=== PATIENT | male | born 1970 | race Caucasian/White ===

== ENCOUNTER 2019-05-27 23:48 | Emergency (ER) | payer MEDICAID ==
[~2019-05-27] VITALS: Ht 182.9 cm; Wt 99.8 kg
[2019-05-27 23:55] VITALS: BP_SYST 149
--- NOTE | 2019-05-28 02:04 | NUR ---
pPlaced in room 2 . Placed on child monitor, blood pressure machine and pulse oximeter. To gown for exam. Side rails up.
--- NOTE | 2019-05-28 02:45 | NUR ---
ER at bedside examining patient.
[2019-05-28 03:05] LABS: BASOPHILS # (AUTO) 0.1 K/uL (0.0-0.2); BASOPHILS % (AUTO) 0.9 % (0.0-2.0); EOSINOPHILS # (AUTO) 0.6 K/uL (0.0-0.4); HEMATOCRIT 44.6 % (36-54); HEMOGLOBIN 15.2 g/dL (14.0-18.0); LYMPHOCYTES # (AUTO) 1.6 K/uL (1.0-5.5); LYMPHOCYTES % (AUTO) 11.5 % (20.5-51.5); MEAN CORPUSCULAR HEMOGLOBIN 32 pg (27-31); MEAN CORPUSCULAR HGB CONC 34 % (32-36); MEAN CORPUSCULAR VOLUME 93 fL (79.0-98.0); MONOCYTES # (AUTO) 1.1 K/uL (0.0-1.0); NEUTROPHILS # (AUTO) 10.6 K/uL (1.8-7.7); NEUTROPHILS % (AUTO) 75.6 % (40.0-70.0); PLATELET COUNT (AUTO) 247 K/uL (130-430); RED BLOOD CELL COUNT(AUTO) 4.83 MIL/uL (4.2-6.2)
[2019-05-28 03:16] LABS: CREATININE 0.92 mg/dL (0.55-1.30); POTASSIUM 3.8 mmol/L (3.5-5.1)
[2019-05-28 03:18] LABS: PROTHROMBIN TIME 9.9 SECS (9.5-12.5)
[2019-05-28 03:21] LABS: ALBUMIN 3.8 g/dL (3.4-4.8); TOTAL BILIRUBIN 0.3 mg/dL (0.0-1.0)
[2019-05-28] MEDS ORDERED: MORPHINE 4 MG/ML INJ. SYRINGE IVP ONE (03:45)
[2019-05-28] MEDS ORDERED: ONDANSETRON HCL 4 MG/2 ML VIAL IVP ONE (03:45)
[2019-05-28] MEDS ORDERED: NACL 0.9% 1,000 ML IV ONE (03:45)
--- NOTE | 2019-05-28 03:48 | NUR ---
Pt went to CT scan via [employer]. Tolerated well. Will cont. to monitor.
[2019-05-28] MEDS ORDERED: MAG HYDROX/AL HYDROX/SIMETH 30 ML, LIDOCAINE VISCOUS 2% 15ML (PO) 10 ML, DICYCLOMINE HC... PO ONE ×3 (05:15)
[2019-05-28 05:48] VITALS: BP_SYST 127
--- NOTE | 2019-05-28 05:48 | NUR ---
Patient given written and verbal discharge instructions and verbalizes understanding. ER MD discussed with patient the results and treatment provided. Patient in stable condition. ID arm band removed. IV catheter removed intact and dressing applied, no active bleeding. Rx of Protonix given. Patient educated on pain management and to follow up with PMD. Pain Scale 0/10. Opportunity for questions provided and answered. Medication side effect fact sheet provided.
== END 2019-05-28 05:48 | disposition home or self-care (01) ==
LOC: SED 23:48
DX: K29.70 Gastritis, unspecified, without bleeding (principal); J98.11 Atelectasis
CPT/HCPCS: 36415; 71045; 74176; 80053; 82150; 83690; 85025; 85610; 96361; 96374; 96375; 99284; J2270; J2405; J7030